=== PATIENT | female | born 1980 | race Caucasian/White ===

== ENCOUNTER 2022-05-12 15:47 | Inpatient (IN) | payer BC ==
[~2022-05-12] VITALS: Ht 152.4 cm; Wt 117.9 kg
[2022-05-12 16:36] LABS: BASOPHILS # (AUTO) 0.1 (0.0-0.1); BASOPHILS % 0.6 % (0.0-1.0); EOSINOPHILS # (AUTO) 0.2 (0.0-0.4); EOSINOPHILS % 2.3 % (0.0-6.0); HEMATOCRIT 32.6 % (34.2-44.1); LYMPHOCYTES # (AUTO) 2.1 (1.0-3.2); LYMPHOCYTES % 21.3 % (18.0-39.1); MEAN CORPUSCULAR HEMOGLOBIN 21.3 pg (28-32); MEAN CORPUSCULAR HGB CONC 27.6 g/dL (31-35); MEAN CORPUSCULAR VOLUME 77.3 fL (81-99); MONOCYTES # (AUTO) 0.6 (0.2-0.8); MONOCYTES % 5.6 % (4.4-11.3); NEUTROPHILS # (AUTO) 6.9 (2.1-6.9); NEUTROPHILS % 69.7 % (38.7-80.0); PLATELET COUNT 277 x10e3/uL (140-360); RED BLOOD COUNT 4.22 x10e6/uL (3.6-5.1); RED CELL DISTRIBUTION WIDTH 18.2 % (11.7-14.4)
[2022-05-12] MEDS: HYDRALAZINE HCL 20 MG/ML VIAL IV PRN ×2 (16:41→18:00)
[2022-05-12 16:57] LABS: ALBUMIN 3.2 g/dL (3.5-5.0); ALBUMIN/GLOBULIN RATIO 0.9 (0.8-2.0); ANION GAP 15.9 mmol/L (8-16); CALCIUM 8.9 mg/dL (8.4-10.2); CREATININE, SERUM 0.7 mg/dL (0.57-1.11); POTASSIUM 3.9 mmol/L (3.5-5.1)
[2022-05-12] MEDS ORDERED: ONDANSETRON HCL INJ 2MG/ML 2ML 2 MG/ML VIAL IV PRN ×2 (18:00→22:30)
[2022-05-12] MEDS ORDERED: ASPIRIN 81 MG CHEW TAB PO ONE (18:00)
[2022-05-12] MEDS ORDERED: SODIUM CHLORIDE FLUSH 10 ML SYR INJ PRN (18:00)
[2022-05-12] MEDS ORDERED: ALBUTEROL SULF 0.083% NEB SOLN 3 ML NEB NEB PRN (18:15)
[2022-05-12 20:00] VITALS: BP 133/80
[2022-05-12 20:12] VITALS: BP 133/80
[2022-05-12 20:15] VITALS: BP 133/80
[2022-05-12] MEDS ORDERED: SYMBICORT 16010.2 GM INH (20:24)
[2022-05-12] MEDS ORDERED: CARVEDILOL12.5 MG PO (20:24)
[2022-05-12] MEDS ORDERED: ACETAMINOPHEN 325 MG TAB PO PRN (21:30)
[2022-05-12] MEDS ORDERED: DIPHENHYDRAMINE HCL 25 MG CAP PO PRN (22:30)
[2022-05-12] MEDS ORDERED: DOCUSATE SODIUM 100 MG CAP PO PRN (22:30)
[2022-05-12] MEDS ORDERED: LIDOCAINE 4% PATCH TP PRN (22:30)
[2022-05-12] MEDS ORDERED: POTASSIUM CHLORIDE 20 MEQ TAB CR PO PRN (22:30)
[2022-05-12] MEDS ORDERED: BENZONATATE 100 MG CAP PO PRN (22:30)
[2022-05-12] MEDS ORDERED: ALBUTEROL/IPRATROPIUM 3 ML NEB NEB PRN (22:30)
[2022-05-12] MEDS ORDERED: HYDRALAZINE HCL 20 MG/ML VIAL IV PRN (22:30)
[2022-05-12] MEDS ORDERED: MELATONIN 5 MG TABLET PO PRN (22:30)
[2022-05-12] MEDS ORDERED: DEXTROSE 50% SYRINGE 50 ML IV PRN (22:30)
[2022-05-12] MEDS ORDERED: SIMETHICONE 80 MG CHEW PO PRN (22:30)
[2022-05-13] VITALS: BP 130/66
[2022-05-13 00:59] LABS: CREATINE KINASE 49 IU/L (29-168)
[2022-05-13 04:00] VITALS: BP 139/90
[2022-05-13 05:00] LABS: BASOPHILS # (AUTO) 0.1 (0.0-0.1); BASOPHILS % 0.6 % (0.0-1.0); EOSINOPHILS # (AUTO) 0.2 (0.0-0.4); HEMATOCRIT 31.5 % (34.2-44.1); HEMOGLOBIN 9.2 g/dL (12.0-16.0); LYMPHOCYTES # (AUTO) 2.6 (1.0-3.2); LYMPHOCYTES % 25.9 % (18.0-39.1); MEAN CORPUSCULAR HEMOGLOBIN 21.5 pg (28-32); MEAN CORPUSCULAR HGB CONC 29.2 g/dL (31-35); MEAN CORPUSCULAR VOLUME 73.8 fL (81-99); MONOCYTES # (AUTO) 0.5 (0.2-0.8); NEUTROPHILS # (AUTO) 6.6 (2.1-6.9); NEUTROPHILS % 65.9 % (38.7-80.0); PLATELET COUNT 276 x10e3/uL (140-360); RED BLOOD COUNT 4.27 x10e6/uL (3.6-5.1); RED CELL DISTRIBUTION WIDTH 18.3 % (11.7-14.4)
[2022-05-13 05:16] LABS: ANION GAP 14.7 mmol/L (8-16); CALCIUM 8.7 mg/dL (8.4-10.2); CREATININE, SERUM 0.65 mg/dL (0.57-1.11); POTASSIUM 3.7 mmol/L (3.5-5.1)
[2022-05-13 05:31] LABS: CHOL/HDL RATIO 4.7 (3.0-3.6); MAGNESIUM 1.8 MG/DL (1.3-2.1)
[2022-05-13] MEDS ORDERED: PANTOPRAZOLE SOD 40 MG TABEC PO SCH (07:30)
[2022-05-13 08:00] VITALS: BP 162/110
[2022-05-13 08:28] VITALS: BP 162/110
[2022-05-13] MEDS ORDERED: LOSARTAN POTASSIUM 25 MG TAB PO SCH (09:00)
[2022-05-13] MEDS ORDERED: FUROSEMIDE INJ 10 MG/ML 2 ML VIAL IV ONE (12:00)
[2022-05-13] MEDS ORDERED: CARVEDILOL 12.5 MG TAB PO SCH (12:30)
[2022-05-13 12:47] VITALS: BP 150/118
[2022-05-13] MEDS ORDERED: ONDANSETRON HCL 4 MG ORAL DISINTEGRATING TAB PO PRN (13:15)
[2022-05-13 15:19] VITALS: BP 127/96
[2022-05-13] MEDS ORDERED: LOSARTAN POTASS25 MG PO (15:58)
[2022-05-13] MEDS ORDERED: LASIX20 MG PO (15:58)
[2022-05-13] MEDS ORDERED: ENOXAPARIN SOD INJ 40 MG/0.4 ML SYR SC SCH (17:00)
== END 2022-05-13 16:11 | disposition home or self-care (01) | DRG 305 ==
LOC: ER 15:57 → ERHOLD 17:49 → MED/SURG 20:02
PROVIDERS: ADMIT Internal Medicine; ATTEND Internal Medicine
DX: I16.0 Hypertensive urgency (principal); J81.1 Chronic pulmonary edema; Z68.43 Body mass index [BMI] 50.0-59.9, adult; E78.5 Hyperlipidemia, unspecified; R51.9 Headache, unspecified; I11.0 Hypertensive heart disease with heart failure; I50.9 Heart failure, unspecified; E66.01 Morbid (severe) obesity due to excess calories; Z88.5 Allergy status to narcotic agent; Z88.8 Allergy status to other drugs, medicaments and biological substances; Z83.3 Family history of diabetes mellitus; Z82.49 Family history of ischemic heart disease and other diseases of the circulatory system; Z20.822 Contact with and (suspected) exposure to COVID-19
CPT/HCPCS: 0223U; 36415; 70450; 71045; 80048; 80053; 80061; 82550; 82553; 83036; 83735; 83880; 84484; 85025; 93005; 93306; 94640; 94799; 99284; J0360; J1940